=== PATIENT | male | born 1955 | race Caucasian/White ===

== ENCOUNTER 2020-06-15 18:31 | Emergency (ER) | payer SELFPAY ==
[2020-06-15] MEDS ORDERED: Sodium Chloride 0.9% 10 ML Syringe FLUSH PRN (18:42)
[2020-06-15] MEDS ORDERED: Ondansetron 4 MG/2 ML SDV IVPUSH ONE (18:43)
[2020-06-15] MEDS ORDERED: HYDROmorphone 2 MG/ML SDV IVPUSH ONE ×2 (18:43→19:21)
[2020-06-15] MEDS ORDERED: Sodium Chloride 0.9% 1,000 ML IV SCH (18:45)
--- NOTE | 2020-06-15 19:25 | EDM.PDOC ---
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 At approximately 3 PM he took 2 Aleve's and that did not seem to help his pain and then at approximately 4:30 PM he laid down at his work and the pain continued to worsen and he decided to go back to his hotel room (he is from [facility] and he is up here doing work). At this time he took 2 more Aleve and aching continue to worsen and he reports the pain got to a 10/10. There was no nausea or vomiting. He did not feel short of breath. He had no arm, neck or jaw pain. Diaphoresis. He reports that he has never had pain like this before. It was a dull and constant pain but he also felt that he could not really get a comfortable position. The pain was worse with palpation over the area. No antecedent symptoms. He had been eating and drinking normally prior to this. There are no other associated signs or symptoms. There are no other modifying factors. Onset: Today (Noon) Duration: Getting Worse Location: Reports: Abdomen Quality: Reports: Ache, Sharp Severity: Severe Improves with: Reports: None Worsens with: Reports: Other (Palpation) Context: Reports: Other (As above) Associated Symptoms: Reports: Chest Pain (Right lower chest pain as well.), Other (No radiation.) Treatments [employer]: Reports: NSAIDS (Aleve.) Chest Pain Score (Numeric/FACES): 10 - Related Data Allergies Allergy/AdvReac Type Severity Reaction Status Date / Time No Known Allergies Allergy Verified 06/15/20 18:41 Past Medical History - Past Health History Medical/Surgical History: Denies Medical/Surgical History (No chronic medical problems. 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 ED ROS GENERAL - Review of Systems Review Of Systems: See Below Constitutional: Reports: No Symptoms HEENT: Reports: No Symptoms Respiratory: Reports: No Symptoms Cardiovascular: Reports: Chest Pain (Right lower chest pain). Denies: Lightheadedness Endocrine: Reports: No Symptoms GI/Abdominal: Reports: Abdominal Pain (Right upper quadrant abdominal pain) : Reports: No Symptoms Musculoskeletal: Reports: No Symptoms Skin: Reports: No Symptoms Neurological: Reports: No Symptoms Hematologic/Lymphatic: Reports: No Symptoms Immunologic: Reports: No Symptoms ED EXAM, GI/ABD - Physical Exam Exam: See Below Exam Limited By: No Limitations General Appearance: Alert, WD/WN, Severe Distress (Appears in acute pain.) Eyes: Bilateral: Normal Appearance, EOMI Ears: Normal External Exam, Hearing Grossly Normal Nose: Normal Inspection, Normal Mucosa, No Blood Throat/Mouth: Normal Inspection, Normal Oropharynx, Normal Voice, No Airway Compromise Head: Atraumatic, Normocephalic Neck: Normal Inspection, Supple, Non-Tender, Full Range of Motion Respiratory/Chest: No Respiratory Distress, Lungs Clear, Normal Breath Sounds, No Accessory Muscle Use, Chest Non-Tender Cardiovascular: Normal Peripheral Pulses, Regular Rate, Rhythm, No Murmur GI/Abdominal Exam: Soft, No Mass, Tender (In right upper quadrant.), Abnormal Bowel Sounds (Decreased bowel sounds). No: Rebound Back Exam: Normal Inspection, Full Range of Motion Extremities: Normal Inspection, Normal Range of Motion, Non-Tender, No Pedal Edema, Normal Capillary Refill Neurological: Alert, Oriented, CN II-XII Intact, Normal Cognition, No Motor/Sensory Deficits Skin Exam: Warm, Dry, Intact, Normal Color, No Rash EKG INTERPRETATION EKG Date: 06/15/20 Time: 19:03 Rhythm: NSR Rate (Beats/Min): 68 [place]: Normal P-Wave: Present QRS: Other (Incomplete IVCD) ST-T: Normal QT: Normal Comparison: NA - No Prior EKG (But essentially normal EKG.) Course - Vital Signs Last Recorded V/S: Last Vital Signs Temp 36.8 C 06/15/20 18:35 Pulse 82 06/15/20 18:35 Resp 18 06/15/20 18:35 BP 184/90 H 06/15/20 18:35 Pulse Ox 98 06/15/20 18:35 - Orders/Labs/Meds Orders: Active Orders 24 hr Category Date Time Status EKG Documentation Completion [RC] ASDIRECTED Care 06/15/20 18:43 Active Abdomen Pelvis w Cont [CT] Stat Exams 06/15/20 19:23 Taken Sodium Chloride 0.9% [Normal Saline] 1,000 ml Med 06/15/20 18:45 Active IV ASDIRECTED Sodium Chloride 0.9% [Saline Flush] Med 06/15/20 18:42 Active 10 ml FLUSH ASDIRECTED PRN Peripheral IV Insertion Adult [OM.PC] Routine Oth 06/15/20 18:42 Ordered EKG 12 Lead [EK] Routine Ther 06/15/20 18:42 Ordered Medication Orders Sodium Chloride (Normal Saline) 1,000 mls @ 150 mls/hr IV ASDIRECTED RENATA Last Admin: 06/15/20 19:27 Dose: 150 mls/hr Documented by: LEEANNA Sodium Chloride (Saline Flush) 10 ml FLUSH ASDIRECTED PRN PRN Reason: Keep Vein Open Last Admin: 06/15/20 19:27 Dose: 10 ml Documented by: LEEANNA Labs: Laboratory Tests 06/15/20 06/15/20 06/15/20 Range/Units 18:50 18:50 18:50 WBC 7.6 (4.5-12.0) X10-3/uL RBC 4.95 (4.30-5.75) x10(6)uL Hgb 10.1 L (13.5-17.8) g/dL Hct 32.4 (30.0-51.3) % MCV 65.4 L (80-96) fL MCH 20.4 L (27.7-33.6) pg MCHC 31.2 L (32.2-35.4) g/dL RDW 19.1 H (11.5-15.5) % Plt Count 303 (125-369) X10(3)uL MPV 8.5 (7.4-10.4) fL Neut % (Auto) 56.1 (46-82) % Lymph % (Auto) 33.1 (13-37) % [place] % (Auto) 8.7 (4-12) % Eos % (Auto) 2 (1.0-5.0) % Baso % (Auto) 0 (0-2) % Neut # (Auto) 4.2 (1.6-8.3) # Lymph # (Auto) 2.5 (0.6-5.0) # [place] # (Auto) 0.7 (0.0-1.3) # Eos # (Auto) 0.2 (0.0-0.8) # Baso # (Auto) 0.0 (0.0-0.2) # Sodium 140 (135-145) mmol/L Potassium 4.0 (3.5-5.3) mmol/L Chloride 103 (100-110) mmol/L Carbon Dioxide 25 (21-32) mmol/L BUN 28 H (7-18) mg/dL Creatinine 1.3 (0.70-1.30) mg/dL Est Cr Clr Drug Dosing TNP Estimated GFR (MDRD) 56 L (>60) BUN/Creatinine Ratio 21.5 H (9-20) Glucose 112 (80-116) mg/dL Calcium 9.1 (8.6-10.2) mg/dL Magnesium 2.1 (1.8-2.5) mg/dL Total Bilirubin 0.4 (0.1-1.3) mg/dL AST 37 H (5-25) IU/L ALT 56 H (12-36) U/L Alkaline Phosphatase 46 L (56-112) IU/L Troponin I 15.8 (4.0-60.3) pg/mL C-Reactive Protein < 0.2 L (0.5-0.9) mg/dL Total Protein 8.2 H (6.0-8.0) g/dL Albumin 4.2 (3.2-4.6) g/dL Globulin 4.0 g/dL Albumin/Globulin Ratio 1.1 Lipase 87 (73-393) U/L 10/10/20 Range/Units 21:40 WBC (4.5-12.0) X10-3/uL RBC (4.30-5.75) x10(6)uL Hgb (13.5-17.8) g/dL Hct (30.0-51.3) % MCV (80-96) fL MCH (27.7-33.6) pg MCHC (32.2-35.4) g/dL RDW (11.5-15.5) % Plt Count (125-369) X10(3)uL MPV (7.4-10.4) fL Neut % (Auto) (46-82) % Lymph % (Auto) (13-37) % [place] % (Auto) (4-12) % Eos % (Auto) (1.0-5.0) % Baso % (Auto) (0-2) % Neut # (Auto) (1.6-8.3) # Lymph # (Auto) (0.6-5.0) # [place] # (Auto) (0.0-1.3) # Eos # (Auto) (0.0-0.8) # Baso # (Auto) (0.0-0.2) # Sodium (135-145) mmol/L Potassium (3.5-5.3) mmol/L Chloride (100-110) mmol/L Carbon Dioxide (21-32) mmol/L BUN (7-18) mg/dL Creatinine (0.70-1.30) mg/dL Est Cr Clr Drug Dosing Estimated GFR (MDRD) (>60) BUN/Creatinine Ratio (9-20) Glucose (80-116) mg/dL Calcium (8.6-10.2) mg/dL Magnesium (1.8-2.5) mg/dL Total Bilirubin (0.1-1.3) mg/dL AST (5-25) IU/L ALT (12-36) U/L Alkaline Phosphatase (56-112) IU/L Troponin I 15.5 (4.0-60.3) pg/mL C-Reactive Protein (0.5-0.9) mg/dL Total Protein (6.0-8.0) g/dL Albumin (3.2-4.6) g/dL Globulin g/dL Albumin/Globulin Ratio Lipase (73-393) U/L Meds: Medications Generic Name Dose Route Start Last Admin Trade Name Freq PRN Reason Stop Dose Admin Sodium Chloride 1,000 mls @ 150 mls/hr 06/15/20 18:45 06/15/20 19:27 Normal Saline IV 150 mls/hr ASDIRECTED RENATA Administration Sodium Chloride 10 ml 06/15/20 18:42 06/15/20 19:27 Saline Flush FLUSH 10 ml ASDIRECTED PRN Administration Keep Vein Open Discontinued Medications Generic Name Dose Route Start Last Admin Trade Name Evertq PRN Reason Stop Dose Admin Hydromorphone HCl 1 mg 06/15/20 18:43 06/15/20 18:45 Dilaudid IVPUSH 06/15/20 18:44 1 mg ONETIME ONE Administration Hydromorphone HCl 1 mg 06/15/20 19:21 06/15/20 19:26 Dilaudid IVPUSH 06/15/20 19:22 1 mg ONETIME ONE Administration Iopamidol 100 ml 06/15/20 19:41 06/15/20 19:55 Isovue-370 (76%) IV 06/15/20 19:42 100 ml . DIRECTED ONE Administration Ketorolac Tromethamine 30 mg 06/15/20 20:25 06/15/20 20:38 Toradol IVPUSH 06/15/20 20:26 30 mg ONETIME ONE Administration Ondansetron HCl 4 mg 06/15/20 18:43 06/15/20 18:45 Zofran IVPUSH 06/15/20 18:44 4 mg ONETIME ONE Administration - Radiology Interpretation Free Text/Narrative:: CT scan of abdomen and pelvis showed distended gallbladder and gallbladder sludge or cholelithiasis. There was no bile duct dilatation. There is a large hiatal hernia. There were no other acute abnormalities in the abdomen or pelvis. This was all per the [facility] radiologist. - Re-Assessments/Exams Free Text/Narrative Re-Assessment/Exam: 06/15/20 19:15: Patient's pain and markedly decreased after the additional 1 mg dose of Dilaudid but has begun to creep back up. His EKG was reassuringly normal. His blood tests showed slight AST and ALT elevation and also a hypochromic microcytic anemia. His initial troponin which would represent a 6 hour post-onset of pain troponin was negative. I will give the patient another dose of Dilaudid IV. 06/15/20 20:10: The patient is back from CT scan at this point and his pain is increasing again after being controlled somewhat with the second dose of Dilaudid. I will give the patient Toradol 30 mg IV. He has remained hemodynamically stable. 06/15/20 21:30: The patient's CT scan showed a distended gallbladder with either sludge or cholelithiasis but no definite evidence of cholecystitis. He currently is pain-free. His abdomen was soft and completely nontender at this point. He has remained hemodynamically stable. At this point will be to repeat his troponin and if it is negative he will be discharged. 06/15/20 22:25: The repeat troponin was negative. The patient remains pain-free at this point. He appears to have had biliary colic I feel that [place] has been ruled out. He reports that he just recently had a complete physical no mention was made of an anemia but he certainly does have pattern that is consistent with a microcytic anemia that is either chronic or subacute. He has had normal stools and has no evidence of recent bleeding or active bleeding at this point. He is very much desirous of discharge at this point. He is given instructions to have no work for the next 2 days. He also is to avoid fatty foods and he should follow-up with his primary doctor this next week. Precautions and reasons to return to the emergency department were discussed with the patient while he was in the emergency department for detailed in the patient's discharge instructions. Departure - Departure Time of Disposition: 22:38 Disposition: Home, Self-Care 01 Condition: Good (Improved) Clinical Impression: Abdominal pain of unknown etiology, Microcytic hypochromic anemia - Discharge Information Instructions: Anemia, Abdominal Pain, Adult, [id number] Referrals: PCP,None [Primary Care Provider] - Additional Instructions: Your EKG was normal. Your heart is on tests were normal. You did have an anemia as we discussed. I am unsure of the cause of this anemia. I am also unsure of the cause of your abdominal pain. As we discussed, I think it is quite likely that your abdominal pain was due to a gallbladder attack. The CT scan of your abdomen and pelvis did show evidence of gallbladder distention and also either some gallstones or sludge in your gallbladder. There is no evidence of infection at this point. You should increase your fluid intake. No work for the next 2 days. Avoid fatty foods. Follow-up with your primary doctor this next week. Back to the emergency department for recurrent severe pain, unrelenting vomiting, severe weakness, trouble breathing, fever, blood in your stool or any other concerning sign or symptom. Sepsis Event Note (ED) - Focused Exam Vital Signs: Vital Signs Temp Pulse Resp BP Pulse Ox 06/15/20 18:35 36.8 C 82 18 184/90 H 98 - My Orders Last 24 Hours: My Active Orders 06/15/20 18:42 Sodium Chloride 0.9% [Saline Flush] 10 ml FLUSH ASDIRECTED PRN Peripheral IV Insertion Adult [OM.PC] Routine EKG 12 Lead [EK] Routine 06/15/20 18:43 EKG Documentation Completion [RC] ASDIRECTED 06/15/20 18:45 Sodium Chloride 0.9% [Normal Saline] 1,000 ml IV ASDIRECTED 06/15/20 19:23 Abdomen Pelvis w Cont [CT] Stat - Assessment/Plan Last 24 Hours: My Active Orders 06/15/20 18:42 Sodium Chloride 0.9% [Saline Flush] 10 ml FLUSH ASDIRECTED PRN Peripheral IV Insertion Adult [OM.PC] Routine EKG 12 Lead [EK] Routine 06/15/20 18:43 EKG Documentation Completion [RC] ASDIRECTED 06/15/20 18:45 Sodium Chloride 0.9% [Normal Saline] 1,000 ml IV ASDIRECTED 06/15/20 19:23 Abdomen Pelvis w Cont [CT] Stat
[2020-06-15] MEDS ORDERED: Iopamidol 755 Mg/ML 100 ML Bottle IV ONE (19:41)
[2020-06-15] MEDS ORDERED: Ketorolac 30 MG/ML SDV IVPUSH ONE (20:25)
== END 2020-06-15 23:00 | disposition home or self-care (01) ==
LOC: FB.ED 18:31
DX: R10.11 Right upper quadrant pain (principal); D50.9 Iron deficiency anemia, unspecified; R07.9 Chest pain, unspecified; R74.01 Elevation of levels of liver transaminase levels
CPT/HCPCS: 36415; 74177; 80053; 83690; 83735; 84484; 85025; 86140; 93005; 96374; 96375; 96376; 99284; 99285; J1170; J1885; J2405; J7030; Q9967